=== PATIENT | male | born 1985 | race Two or more races ===

== ENCOUNTER 2017-10-09 21:38 | Emergency (ER) | payer OTHER ==
[~2017-10-09] VITALS: Ht 175.3 cm; Wt 68.0 kg
--- NOTE | 2017-10-09 21:38 | NUR ---
"WAS WALKING IN MY HOUSE AFTER 2 BIG GLASSES OF WINE AND SMOKING WEED AND HIT MY HEAD BUT DID NOT KO". VSS NAD. WILL CONTINUE TO MONITOR FOR ANY CHANGES DURING THE SHIFT.
[2017-10-09 23:19] VITALS: BP 121/77
== END 2017-10-09 23:19 | disposition home or self-care (01) ==
LOC: ER 21:40
DX: R55 Syncope and collapse (principal); F12.10 Cannabis abuse, uncomplicated
CPT/HCPCS: A4606; Z7610